=== PATIENT | male | born 1955 | race Caucasian/White ===

== ENCOUNTER 2020-05-27 15:24 | Outpatient (CLI) | payer MEDICARE, BC | END 2020-05-27 15:25 | disposition home or self-care (01) | LOC: COV 15:24 | PROVIDERS: ATTEND Family Medicine | DX: R05 Cough (principal); M79.10 Myalgia, unspecified site; R09.81 Nasal congestion; Z20.828 Contact with and (suspected) exposure to other viral communicable diseases ==